=== PATIENT | male | born 1945 ===

== ENCOUNTER 2023-12-22 12:47 | Inpatient (IN) | payer MEDICARE ==
[~2023-12-22] VITALS: Ht 180.3 cm; Wt 60.8 kg
[2024-03-06] VITALS (12 sets, daily range): BP systolic 106–151; BP diastolic 62–86; PULSE 18–87; TEMP 97.1–98.5
[2024-03-06] MEDS ORDERED: HYDROmorphone 1 MG/1 ML SYRINGE [PACU/SDC ONLY] IV PRN ×2 (08:00)
[2024-03-06] MEDS ORDERED: Ondansetron 4 MG/2 ML VIAL IV PRN (08:00)
[2024-03-06] MEDS ORDERED: hydrALAZINE 20 MG/ML 1 ML VIAL IV PRN (08:00)
[2024-03-06] MEDS ORDERED: droPERidol 2.5 MG/ML 2 ML VIAL IV PRN (08:00)
[2024-03-06] MEDS ORDERED: fentaNYL 50 MCG/ML 1 ML SYRINGE/VIAL [PACU/SDC ONLY] IV PRN (08:00)
[2024-03-06] MEDS ORDERED: Meperidine 50 MG/ML 1 ML VIAL IV PRN (08:00)
[2024-03-06] MEDS ORDERED: oxyCODONE ER (12-HR) 20 MG TAB PO SCH (09:00)
[2024-03-06] MEDS ORDERED: Celecoxib 200 MG CAP PO SCH (09:00)
[2024-03-06] MEDS ORDERED: Pregabalin 150 MG CAP PO SCH (09:00)
[2024-03-06] MEDS ORDERED: LR 1,000 ML IV ONE (09:30)
[2024-03-06] MEDS ORDERED: NS 10 ML IV ONE (09:57)
[2024-03-06] MEDS ORDERED: fentaNYL 50 MCG/ML 2 ML VIAL ONE (09:57)
[2024-03-06] MEDS ORDERED: dexAMETHasone 10 MG/ML VIAL ONE (09:57)
[2024-03-06] MEDS ORDERED: Midazolam 2 MG/2 ML VIAL ONE (09:57)
[2024-03-06] MEDS ORDERED: Ondansetron 4 MG/2 ML VIAL ONE (09:57)
[2024-03-06] MEDS ORDERED: MOBIC15 MG PO (10:06)
[2024-03-06] MEDS ORDERED: NORVASC 5MG5 MG/TAB PO (10:07)
[2024-03-06] MEDS ORDERED: PRINIVIL20 MG PO (10:07)
[2024-03-06] MEDS ORDERED: Tranexamic Acid 1,000 MG/10 ML VIAL ONE (10:07)
[2024-03-06] MEDS ORDERED: ZYRTEC 10MG10 MG PO (10:08)
[2024-03-06] MEDS ORDERED: VITAMIN C500 MG PO (10:09)
[2024-03-06] MEDS ORDERED: OMEGA-3 1000 MG1 CAP PO (10:09)
[2024-03-06] MEDS ORDERED: VITAMIN D3 PO (10:10)
[2024-03-06] MEDS ORDERED: PHARMASSURE ZIN50 MG PO (10:12)
[2024-03-06] MEDS ORDERED: ASPIRIN 81M81 MG/TA2 PO (10:13)
[2024-03-06] MEDS ORDERED: SAW PALMETTO S450 MG PO (10:13)
[2024-03-06] MEDS ORDERED: CALCIUM PO (10:14)
[2024-03-06] MEDS ORDERED: Topical Skin Adhesive 1 EACH (1 ML) TOP ONE (12:46)
[2024-03-06] MEDS ORDERED: Promethazine 50 MG/ML 1 ML VIAL IM PRN (14:30)
[2024-03-06] MEDS ORDERED: Cetirizine 10 MG TAB PO PRN (14:30)
[2024-03-06] MEDS ORDERED: Promethazine 25 MG TAB PO PRN (14:30)
[2024-03-06] MEDS ORDERED: Naloxone 0.4 MG/ML VIAL IV PRN (14:30)
[2024-03-06] MEDS ORDERED: Morphine 4 MG/ML VIAL IV PRN (14:30)
[2024-03-06] MEDS ORDERED: oxyCODONE 5 MG TAB PO PRN (14:45)
--- NOTE | 2024-03-06 15:00 | NUR ---
PATIENT IS ALERT BUT ORIENTED X2. PATIENT IS VERY SILLY AND COVERSATION IS ALL OVER THE PLACE. PATIENT STATES HE IS "UNDER THE INFLUENCE". NO C/O PAIN OR NAUSEA. RTK DSG IS CD&I WITH ACEWRAP. TEDS TO LLE. SCD'S TO BLE. IV FLUIDS INFUSING INTO RIGHT FORARM IV. HEAD TO TOE ASSESSMENT COMPLETE. ORIENTED TO ROOM. FRIENDS AT BEDSIDE. CALL LIGHT IN REACH.
[2024-03-06] MEDS ORDERED: Acetaminophen 500 MG TAB PO SCH ×2 (15:29→20:00)
[2024-03-06] MEDS ORDERED: ceFAZolin 1 G in Water For Injection,Sterile 10 ML IV SCH ×2 (18:29→20:30)
--- NOTE | 2024-03-06 19:33 | NUR ---
report received from liliya hernandes. pt resting in bed watching tv. pt reports 2/10 pain but refuses pain meds currently. pt noted to be slightly confused but pleasant. post op vital signs continue wnl. call light in reach. all needs met at this time.
--- NOTE | 2024-03-06 21:53 | NUR ---
shift assessment complete, see documentation. pt tolerated hs meds well. pt denies pain at this time. pt tolerated dinner and fluids well. pt right hand iv int. pt ambulated to bathroom with x1 staff assist. pt went with steady gait. now resting in bed. call light in reach. all needs met at this time.
[2024-03-07] VITALS (12 sets, daily range): BP systolic 106–130; BP diastolic 58–67; PULSE 52–65; TEMP 97.5–98.7
[2024-03-07] MEDS ORDERED: Lisinopril 20 MG TAB PO SCH (09:00)
[2024-03-07] MEDS ORDERED: amLODIPine 5 MG TAB PO SCH (09:00)
[2024-03-07] MEDS ORDERED: Celecoxib 200 MG CAP PO SCH (09:00)
--- NOTE | 2024-03-07 10:07 | NUR ---
PT SITTING UP IN CHAIR. RATES PAIN 1/10 IN THE RIGHT KNEE. ASSESSED PT AND GAVE MORNING MEDS. PT IS ALERT AND ORIENTED WITH SOME CONFUSION. BRACE ON RIGHT KNEE. NO OTHER COMPLAINTS AT THIS TIME. CALL LIGHT WITHIN REACH.
--- NOTE | 2024-03-07 10:23 | NUR ---
Initial visit; Patient thanked Residential Recycle Driver for looking in on him and talked at length, sang Anabaptism Songs and verses and thanked Residential Recycle Driver for visit and offering prayer. Residential Recycle Driver wished Malcolm well.
--- NOTE | 2024-03-07 11:54 | NUR ---
CHANGED PT DRESSING TO [facility]. SALUD HOSE APPLIED TO [facility]
--- NOTE | 2024-03-07 16:33 | NUR ---
Advance Agent met with patient and his sister, Jackie (ph#[phone]) to discuss discharge planning. Patient had great difficulty staying on topic and had to be redirected multiple times with the assistance of Jackie. Patient lives in [place], [place] and rents the basement from a woman named Negar. Patient was sure to mention multiple times that they are not romantically involved. Patient sees Dr. Brock for primary care and gets his medications from [facility]. Patient is normally independent with ADLS including driving. Patient reported he has DPOA-HC designating his sister, Jackie. When the topic of discharge planning came up, patient's sister advised she would like patient to go to [facility] and patient is agreeable to this. BRADLEY advised this would require prior authorization from [facility] and if they did not approve, patient would have to return home with or outpatient therapy. BRADLEY contacted [facility] and faxed referral. Mallory at [facility] advised they would work on submitting for authorization. Discharge Plan: [facility] pending insurance authorization vs home with Home Health
--- NOTE | 2024-03-07 21:00 | NUR ---
UPON SHIFT ASSESSMENT, ADE WAS AWAKE IN BED AXO AND EXTREMELY TALKATIVE. KNEE IMMOBILIZER IN PLACE, DISTAL PULSES IN LOWER EXTREMITY PALPABLE BUT DIFFICULT TO FIND. SENSATIONS GOOD. VS ARE WNL AND PATIENT DENIES SOA OR PAIN AT THIS TIME.
--- NOTE | 2024-03-07 22:00 | NUR ---
PATIENT AMBULATED APPROXIMATELY 500 FT WITH GOOD EFFORT.
[2024-03-08] VITALS (12 sets, daily range): BP systolic 108–130; BP diastolic 55–66; PULSE 62–75; TEMP 97.6–98.9
--- NOTE | 2024-03-08 00:45 | NUR ---
PATIENT BECOMING INCREASINGLY AGITATED-BASELINE CHEERFUL-PAIN ASSESSMENT REVEALED APPROACHING TOLERABLE LEVEL. PATIENT STATED, "I AM GETTING A LITTLE SHARP PAIN IN MY KNEE. I JUST DON'T KNOW WHAT TO DO, BECAUSE I CAN'T SEEM TO GET TO SLEEP." 10MG PRN ROXICODONE GIVEN.
--- NOTE | 2024-03-08 02:45 | NUR ---
ROUNDED ON PATIENT, SNORING, SLEEPING SUPINE. PAIN APPEARS TO HAVE RESOLVED. PATIENT AROUSES EASILY. RATES PAIN 0/10.
--- NOTE | 2024-03-08 08:53 | NUR ---
PT RESTING IN BED, ALERT AND ORIENTED WQITH CONFUSION. RATES PAIN 1/10, "MUCH BETTER THAN LAST NIGHT". TEDS ON. PT STILL ON 2L OF O2 VIA NASAL CANULA. ASSESSED AND GAVE MORNING MEDS. NO OTHER COMPLAINTS AT THIS TIME. CALL LIGHT WITHIN REACH.
[2024-03-08] MEDS ORDERED: ASPI325T6 PO (08:54)
[2024-03-08] MEDS ORDERED: TYLENOL 500MG500 MG PO (08:55)
[2024-03-08] MEDS ORDERED: ROXICODONE 55 MG/TAB PO (08:55)
[2024-03-08] MEDS ORDERED: CELEBREX 200MG200 MG PO (08:55)
--- NOTE | 2024-03-08 10:25 | NUR ---
Rubber Cutter And Shape Carver attended rounding with YAMIL Bills to update on discharge plan. Patient will not discharge today. BRADLEY updated patient that we are waiting on authorization from [facility]. BRADLEY contacted Jacquelyn at [facility] to provide update. BRADLEY also contacted patient's sister, Jackie to check in. BRADLEY again stressed that if [employer] denies swing bed, the plan is for home with HH. Discharge Plan: [facility], pending auth
--- NOTE | 2024-03-08 16:05 | NUR ---
Social work student contacted Jacquelyn at [facility] for an update on [employer] autherization. Jacquelyn informed [employer]ana is requesting peer to peer from [facility] doctor. BRADLEY will follow up tomorrow.
--- NOTE | 2024-03-08 20:53 | NUR ---
PATIENT SITTING UP IN RECLINER UPON ENTERING ROOM. EVENING MEDICATIONS ADMINISTERED. SHIFT ASSESSMENT COMPLETED. PATIENT DENIES ANY PAIN AT THIS TIME. UPDATED PATIENT ON PLAN OF CARE FOR THE NIGHT. CALL LIGHT PLACED WITHIN REACH. SALUD HOSE AND R KNEE BRACE IN PLACE. WILL CONTINUE TO MONITOR.
[2024-03-09] VITALS (7 sets, daily range): BP systolic 116–152; BP diastolic 64–78; PULSE 65–83; TEMP 97.8–98.6
--- NOTE | 2024-03-09 00:20 | NUR ---
Received report from Ceci CONRAD. Patient resting in bed, eyes closed, looks comfortable, respirations even and unlabored.
--- NOTE | 2024-03-09 04:00 | NUR ---
Patient spilled his urine out from his urinal which he didn't realized he had his urinal on, complete bed changed done, pericare provided, SALUD's both and knee immobilizer on to right.
[2024-03-09 09:34] LABS: HEMOGLOBIN 11.9 g/dl (13.5-18.0)
[2024-03-09 09:42] LABS: HEMATOCRIT 36.1 % (42.0-52.0)
--- NOTE | 2024-03-09 11:48 | NUR ---
PATIENT ALERT AND ORIENTED X4. VSS. PATIENT HERE FOR RIGHT TOTAL KNEE. DRESSING IN PLACE, CDI WITH KNEE IMMOBILIZER ON. IV TO RIGHT FA INT AND FLUSHES WELL. PATIENT DENIES PAIN AND DENIES NEED FOR PAIN MEDICATION AT THIS TIME. PATIENT ON RA. AM MEDS ADMINISTERED. CALL LIGHT IN REACH. CHAIR ALARM ON.
--- NOTE | 2024-03-09 13:22 | NUR ---
DISCHARGE INSTRUCTIONS PROVIDED. PATIENT EDUCATION GIVEN. DRESSING CHANGE INSTRUCTIONS PROVIDED, SUPPLIES NEEDED GIVEN. IV DC'D. FOLLOW UP APPOINTMENT DISCUSSED. MEDICATIONS REVIEWED. PATIENT AND FAMILY DENIES ANY QUESTIONS OR CONCERNS. PATIENT ESCORTED OUT VIA WHEELCHAIR.
--- NOTE | 2024-03-09 13:33 | NUR ---
Linux Vmware Administrator received a message from [employer] requesting a peer to peer. BRADLEY contacted YAMIL Bills who completed peer to peer and advised patient did not meet criteria for swing bed. BRADLEY met with patient and contacted patient's sister, Jackie to provide update and to plan for home health. Patient will be staying with his sister after discharge. BRADLEY provided Medicare.gov list of agencies and advised that from that list, [facility] was the only agency in network with Nara. Patient requested referral be sent to [facility]. BRADLEY contacted Katarina at [facility] and faxed referral. Katarina followed up with BRADLEY and advised they can accept so SW provided discharge orders. Discharge Plan: Home with [facility] HH
== END 2024-03-09 13:23 | disposition home or self-care (01) | DRG 470 ==
LOC: SURG 03-06 07:30 → INPTSU 03-06 08:19 → SURG 03-06 08:19
PROVIDERS: Physician Assistant; ADMIT Orthopaedic Surgery
PROC: 0SRC0L9 Replacement of Right Knee Joint with Medial Unicondylar Synthetic Substitute, Cemented, Open Approach (ICD-10-PCS; 2024-03-06)
PROC: 0SRC0J9 Replacement of Right Knee Joint with Synthetic Substitute, Cemented, Open Approach (ICD-10-PCS; principal; 2024-03-06 17:00)
DX: M17.11 Unilateral primary osteoarthritis, right knee (principal); S72.431 Displaced fracture of medial condyle of right femur; I10 Essential (primary) hypertension; E78.00 Pure hypercholesterolemia, unspecified; F32.A Depression, unspecified; J45.909 Unspecified asthma, uncomplicated; N40.0 Benign prostatic hyperplasia without lower urinary tract symptoms
CPT/HCPCS: A6197; A9284; C1713; C1776; J0665; J0690; J1100; J2250; J2405; J2704; J3010; J7120; L1832